=== PATIENT | female | born 1965 | race Caucasian/White ===

== ENCOUNTER 2022-10-09 23:21 | Inpatient (IN) | payer BC ==
[2022-10-10] LABS: #Monocytes 0.2 10x3/uL (0.0-1.1); #Neutrophils 5.6 10x3/uL (1.5-8.4); %Basophils 0.2 % (0.0-2.0); %Lymphocytes 6.6 % (18.0-47.0); %Monocytes 2.6 % (0.0-10.0); %Neutrophils 90.3 % (40.0-75.0); Hemoglobin 12.7 g/dL (12.0-15.5); Mean Corpuscular HGB CONC 34.1 g/dL (32.0-36.0); Mean Corpuscular Hemoglobin 31.5 pg (27.0-33.0); Mean Corpuscular Volume 92.3 fl (81.6-98.3); Mean Platelet Volume 9.5 fl (7.4-10.4); Platelet Count 240 10x3/uL (150-450); RBC Distribution Width 12.4 % (11.5-14.5); Red Blood Cell (RBC) Count 4.03 10x6/uL (3.90-5.03); White Blood Cell (WBC) Count 6.2 10x3/uL (3.5-10.5)
[2022-10-10 00:16] LABS: ALT (SGPT) 25 U/L (8-55); AST (SGOT) 24 U/L (5-34); Albumin 4.4 g/dL (3.5-5.0); Alkaline Phosphatase 39 U/L (40-110); Anion Gap 18 mmol/L (10-20); BUN (Urea Nitrogen) 25 mg/dL (9.8-20.1); Bilirubin, Total 0.5 mg/dL (0.2-1.2); Calc. Creatinine Clearance 0 mL/min (70-130); Calcium 10.4 mg/dL (7.8-10.44); Carbon Dioxide 20 mmol/L (22-29); Chloride 105 mmol/L (98-107); Estimated GFR 58; Globulin 2.8 g/dL (2.4-3.5); Glucose 167 mg/dL (70-105); Potassium 4.4 mmol/L (3.5-5.1); Protein, Total 7.2 g/dL (6.0-8.3); Sodium 139 mmol/L (136-145)
[2022-10-10] MEDS ORDERED: Zolpidem Tartrate 5 MG TAB PO PRN (01:57)
[2022-10-10] MEDS ORDERED: Acetaminophen 325 MG TAB PO PRN (01:57)
[2022-10-10] MEDS ORDERED: Ondansetron PF 4 MG/2 ML Vial IVP PRN (01:57)
[2022-10-10] MEDS ORDERED: Calcium Carbonate 500 MG ChewTAB PO PRN (01:57)
[2022-10-10] MEDS ORDERED: Senokot S 8.6-50 MG TAB PO PRN (01:57)
[2022-10-10 03:35] LABS: SARS-CoV-2 NAA Rapid Test Not Detected (NotDetected)
[2022-10-10] MEDS ORDERED: Lactated Ringer's 500 ML IV SCH (04:00)
[2022-10-10] MEDS: HYDROcodone/Acetaminophen 5/325 mg Tablet PO PRN ×5 (04:13→23:57)
[2022-10-10 04:27] VITALS: BMI 34.6
[2022-10-10] MEDS: Furosemide 20 MG TAB PO SCH (08:08)
[2022-10-10] MEDS: Carvedilol 6.25 MG TAB PO SCH ×2 (08:08→16:46)
[2022-10-10] MEDS: Lisinopril 5 MG TAB PO SCH (08:09)
[2022-10-10] MEDS ORDERED: Gabapentin 100 MG CAP PO PRN (09:14)
[2022-10-10 10:45] LABS: #Monocytes 0.6 10x3/uL (0.0-1.1); #Neutrophils 5.2 10x3/uL (1.5-8.4); %Basophils 0.1 % (0.0-2.0); %Lymphocytes 15.2 % (18.0-47.0); %Monocytes 9.1 % (0.0-10.0); %Neutrophils 75.3 % (40.0-75.0); Hemoglobin 11.3 g/dL (12.0-15.5); Mean Corpuscular HGB CONC 34.2 g/dL (32.0-36.0); Mean Corpuscular Hemoglobin 31.6 pg (27.0-33.0); Mean Corpuscular Volume 92.2 fl (81.6-98.3); Mean Platelet Volume 9.9 fl (7.4-10.4); Platelet Count 245 10x3/uL (150-450); RBC Distribution Width 12.7 % (11.5-14.5); Red Blood Cell (RBC) Count 3.58 10x6/uL (3.90-5.03); White Blood Cell (WBC) Count 6.9 10x3/uL (3.5-10.5)
[2022-10-10 12:49] LABS: Anion Gap 14 mmol/L (10-20); BUN (Urea Nitrogen) 20 mg/dL (9.8-20.1); Calc. Creatinine Clearance 85 mL/min (70-130); Calcium 9.8 mg/dL (7.8-10.44); Carbon Dioxide 21 mmol/L (22-29); Chloride 107 mmol/L (98-107); Estimated GFR 80; Glucose 91 mg/dL (70-105); Potassium 3.6 mmol/L (3.5-5.1); Sodium 138 mmol/L (136-145)
[2022-10-10] MEDS ORDERED: Gabapentin 100 MG CAP PO SCH (14:30)
[2022-10-10] MEDS: Gabapentin 300 MG CAP PO PRN (20:27)
[2022-10-11] MEDS: Gabapentin 300 MG CAP PO PRN ×2 (07:40→13:34)
[2022-10-11] MEDS: HYDROcodone/Acetaminophen 5/325 mg Tablet PO PRN ×2 (08:39→13:53)
[2022-10-11] MEDS: Carvedilol 6.25 MG TAB PO SCH (08:43)
[2022-10-11] MEDS: Lisinopril 5 MG TAB PO SCH (08:43)
[2022-10-11] MEDS: Furosemide 20 MG TAB PO SCH (08:43)
[2022-10-11] MEDS ORDERED: Lactated Ringer's 500 ML IV SCH (11:30)
[2022-10-11 12:28] VITALS: BP 121/69; TEMP 98
[2022-10-13] MEDS ORDERED: FLU VACC QS2022-23(6MOS UP)/PF 60 MCG/0.5 ML SYRINGE IM ONE (06:30)
== END 2022-10-11 14:30 | disposition home or self-care (01) | DRG 74 ==
LOC: CSHERS 23:21 → CSHTELE 10-10 01:47 → OBSVTOIN 10-11 11:21
PROVIDERS: ADMIT Student in an Organized Health Care Education/Training Program; ATTEND Family Medicine
DX: G56.81 Other specified mononeuropathies of right upper limb (principal); I42.8 Other cardiomyopathies; J98.6 Disorders of diaphragm; T50.995A Adverse effect of other drugs, medicaments and biological substances, initial encounter; I11.0 Hypertensive heart disease with heart failure; I50.9 Heart failure, unspecified; K21.9 Gastro-esophageal reflux disease without esophagitis; F41.9 Anxiety disorder, unspecified; I95.9 Hypotension, unspecified; Z20.822 Contact with and (suspected) exposure to COVID-19; Z88.0 Allergy status to penicillin; Z79.899 Other long term (current) drug therapy; Z90.89 Acquired absence of other organs; Z98.84 Bariatric surgery status; Z90.49 Acquired absence of other specified parts of digestive tract; Z82.49 Family history of ischemic heart disease and other diseases of the circulatory system
CPT/HCPCS: 36415; 71045; 80048; 80053; 83880; 84484; 85025; 93005; 94760; G0378; J7120; U0002

== ENCOUNTER 2024-07-21 14:50 | Outpatient (CLI) | payer BC | END 2024-07-21 14:51 | disposition home or self-care (01) | LOC: CSHMRI 14:50 | PROVIDERS: ATTEND Surgery | DX: M47.816 Spondylosis without myelopathy or radiculopathy, lumbar region (principal); M47.814 Spondylosis without myelopathy or radiculopathy, thoracic region; M48.061 Spinal stenosis, lumbar region without neurogenic claudication; M51.369 Other intervertebral disc degeneration, lumbar region without mention of lumbar back pain or lower extremity pain | CPT/HCPCS: 72146; 72148 ==